=== PATIENT | female | born 1990 | race Caucasian/White ===

== ENCOUNTER 2017-04-10 14:27 | Inpatient (IN) ==
--- OUTSIDE RECORDS SUMMARY | 2017-04-10 15:48 | External Medical Summary | Continuity of Care Document ---
:1990 Author Organization [facility] Address [address] [place], [place] [id number] Phone Care Team Providers Name Role Phone Gosia Quach MD Unavailable Unavailable Allergies, Adverse Reactions, Alerts Substance Reaction Severity Status No Known Drug Allergies Unknown Active Medications Medication Instructions Dosage Effective Dates Status Comments (start - stop) 28 mg-800 - Active mcg tablet Prozac 20 mg TAKE ONE CAPSULE BY - Active capsule MOUTH EVERY DAY IN THE MORNING PROBIOTIC & - Active ACIDOPHILUS (unknown strength) Vitamin D3 400 unit - Active capsule Foltrate 0.5 mg-1 take 1 tablet by Not Available - Active mg tablet oral route every day ORAL - Active TABLET Problems Condition Effective Dates (start - stop) Clinical Status Threatened - Dysuria - Active Vulvitis, Acute - Active IUD Surveillance - Active Procedures Procedure Date Office/outpatient visit,est, mod Blood typing, ABO only Blood typing, Rh (D) Venpnctr fngr/heel/ear stick routne Results Test Name Date and Time Measure Units Reference Range Abnormal Flag Comments Panel Description: ABO GROUP AND RH TYPE ABO GROUP 13:57:00 O RH TYPE 13:57:00 RH(D) POSITIVE REPORT COMMENT:FASTING: NOTest performed at [facility] [id number] [place] [id number]: CAMERON STACK DO,MPH Advance Directives Directive Yes / No Effective Date File Name Unknown Encounters Encounter Practice Location Reason(s) Diagnoses Date Provider Care Team Description For Visit Members Office/outpati Andrea Dominguez early Ob Threatened Matson Referring ent visit,est, In Womens with -2016 Joann. 700 Provider: [email or web address] nettie AGUILAR Medical Joann Matson [address], (chief Center Kisha Gallegos, [address] [place] [address], complaint) [address], Medical [id number], [place], [place] [facility], [address], tel:[phone], [place], [address] [place]. [id number]. tel:[phone] tel:[phone] Andrea Dominguez [place]son In Womens -2013 Joann. 700 wali [place], Medical [address], Center , [place], [address], [id number], [place], [place], tel:[phone], [address] [place]. tel:[phone] Andrea Dominguez [place] In Womens -2010 Jessica. wali [place], [address], Medical [place], [place] , [id number], [address], [place], tel:[phone] [place], [id number], [place]. tel:[phone] Family History Family Member Diagnosis Age At Onset Father Hypertension Mother Urological Disorder No family history of Ovarian Cancer No family history of Diabetes No family history of Uterine Cancer Mother Thyroid Disorder No family history of Colon Cancer No family history of Cardiovascular Disease No family history of Stroke No family history of Breast Cancer Immunizations Vaccine Date Status Comments Unknown Payers Payer name Insurance type Covered constitution party ID Authorization(s) [facility] [id number] Social History Type Description Quantity Date Captured Alcohol Use Details No Caffeine Use Details Unknown occas per day Tobacco Use Status Never smoked tobacco Smoking Status Never smoker Non-Smoking Tobacco Use : No Details Available : No Details Available Details Vital Signs Date / Height Weight BMI Pulse Blood Temperature Respiratory Body Head BMI Time: Rate Pressure Rate Surface Circumference percentile Area 188.50 28.6 113 -2016 lbs 6 mm[Hg] 1:19 kg/m PM eter (2) Chief Complaint And Reason For Visit Most recent encounter only, dated '08/28/2016 13:10'. early Ob with spotting (chief complaint). Description: Pt of Dr Quach's. LMP -7 wks 0 days with EDC of 04/16/17. Pt reports dark red bleeding on 08/21, small amount- then turned brown and went away. Had occ spotting since then and then more brown discharge on 08/24. None for the last 2 days. Minimal cramping on 08/21. None since. Still having a little bit of nausea and mild breasttenderness, No fatigue. Had + preg test on 08/09. Saw Dr Quach for confirmation of . Hx of 2 SAB's- 1 very early and didn' t see drMireille Is taking weekly Progesterone shots. Doesn't know blood type. Reason For Referral Reason For Referral Unknown Plan Of Care Date Type Action Status Unknown. Date Type Problem Goal Intervention Status Start Date Unknown. History Of Present Illness Encounter Date Complaint History Of Present Illness early Ob with spotting Pt of Dr Quach's. LMP - 7 wks 0 days with EDC of 04/16/17. Pt reports dark red bleeding on 08/21, small amount- then turned brown and went away. Had occ spotting since then and then more brown discharge on 08/24. None for the last 2 days. Minimal cramping on 08/21. None since. Still having a little bit of nausea and mild breast tenderness, No fatigue. Had + preg test on 08/09. Saw Dr Quach for confirmation of . Hx of 2 SAB's- 1 very early and didn't see Is taking weekly Progesterone shots. Doesn't know blood type. Functional Status Encounter Date Functional Assessment Cognitive Assessment Unknown Medications Administered Medication Instructions Dosage Effective Dates (start - stop) Status Comments Drug Treatment Unknown Instructions Date Instruction Additional Information Unknown
[2017-04-10] MEDS ORDERED: DINOPROSTONE 10 MG VAGINAL INSERT VG ONE (16:22)
[2017-04-10] MEDS ORDERED: LIDOCAINE 1% (10mg/ml) 2mL INJ PF SDV ID PRN (16:22)
[2017-04-10] MEDS ORDERED: SALINE FLUSH 10ml SYRINGE IV PRN (16:22)
[2017-04-10] MEDS ORDERED: MAG-AL + SIM ORAL LIQUID 30ml PO PRN (16:22)
[2017-04-10] MEDS ORDERED: ACETAMINOPHEN 500 MG TABLET PO PRN (16:22)
[2017-04-10] MEDS ORDERED: TERBUTALINE 1 MG/ML VIAL SQ PRN (16:22)
[2017-04-10] MEDS ORDERED: METHYLERGONOVINE 0.2 MG/ML INJECTION IM PRN (16:22)
[2017-04-10] MEDS ORDERED: CARBOPROST 250 MCG/ML INJECTION IM PRN (16:22)
[2017-04-10] MEDS ORDERED: CALCIUM CARBONATE Chewable 500mg TABLET PO PRN (16:22)
[2017-04-11 05:57] VITALS: BMI 38.5
[2017-04-11] MEDS: LR 1,000 ML IV PRN ×3 (05:58→15:38)
[2017-04-11] MEDS: D5LR 1,000 ML IV PRN ×2 (05:58→15:07)
[2017-04-11] MEDS ORDERED: OXYTOCIN DRIP 30 UNIT/500 ML ML IV PRN (06:00)
--- NOTE | 2017-04-11 10:54 | Anesthesia Preoperative Report ---
Anesthesia Epidural/Spinal Rec - Date and Time Date: 04/11/17 Preoperative Diagnosis: Active labor Procedure: Labor Epidural Plan: Epidural - Vital Signs /Para: P:1 - Medictaions & Allergies Inpatient Medications: Current Medications Acetaminophen (Tylenol) 500 - 1,000 mg PO Q4H PRN PRN Reason: Pain Last Admin: 04/10/17 22:02 Dose: 1,000 mg Al Hydroxide/Mg Hydroxide (Maalox Plus) 30 ml PO Q3H PRN PRN Reason: Indigestion Calcium Carbonate (Tums) 500 - 1,000 mg PO Q2H PRN PRN Reason: Indigestion Carboprost Tromethamine (Hemabate) 250 mcg IM O PRN PRN Reason: .Downtime Diphenhydramine HCl (Benadryl) 50 mg PO HS PRN PRN Reason: Sleep Last Admin: 04/10/17 22:08 Dose: 50 mg Lactated Ringer's (Lactated Ringers) 1,000 mls @ 999 mls/hr IV .Q1H1M PRN Last Admin: 04/11/17 05:58 Dose: 999 mls/hr Dextrose/Lactated Ringer's (Dextrose 5%-Lactated Ringers) 1,000 mls @ 125 mls/ hr IV .Q8H PRN PRN Reason: Labor Last Admin: 04/11/17 05:58 Dose: 125 mls/hr Oxytocin (Pitocin Drip) 30 unit in 500 mls @ 2 mls/hr IV .Q24H PRN; Protocol PRN Reason: Induction/Augmentation Last Admin: 04/11/17 05:59 Dose: 2 mls/hr Lidocaine HCl (Xylocaine-Mpf 1% Vial) 0.2 mg ID O PRN PRN Reason: IV Start Methylergonovine Maleate (Methergine) 0.2 mg IM O PRN Misoprostol (Cytotec) 800 mcg NM ONCE PRN Sodium Chloride (Iv Flush) 10 - 80 ml IV PRN PRN PRN Reason: Flushing Terbutaline Sulfate (Brethine) 0.25 mg SQ PRN PRN Allergies/Adverse Reactions: Allergies Allergy/AdvReac Type Severity Reaction Status Date / Time No Known Allergies Allergy Verified 04/11/17 05:13 - Medical History Neuro/Musculoskeletal: Reports: Depression Other History: Reports: Now - Surgical History Anesthesia Reactions: None Hx Family Anesthesia Reaction: No History of Motion Sickness: No - Social History Smoking Status: Never smoker Second Hand Exposure: No Substance Use Type: does not use Alcohol Intake Frequency: does not drink Hx Chewing Tobacco Use: No - Pertinent Findings Lab Data: CBC and BMP 04/10/17 16:38 04/10/17 16:38 BMP 04/10/17 16:38 Sodium 143 Potassium 4.0 Chloride 110 H Carbon Dioxide 21 L BUN 8.0 Creatinine 0.5 L Glucose 85 Calcium 9.8 Liver Function 04/10/17 Range/Units 16:38 Total Bilirubin < 0.10 L (0.20-1.30) MG/DL AST 27 (14-36) U/L ALT 32 (9-52) U/L Alkaline Phosphatase 144 H (38-126) U/L Albumin 3.7 (3.5-5.0) G/DL Urine 04/10/17 Range/Units 17:09 Urine Color Yellow (YELLOW) Urine Clarity Clear Urine pH 7.0 (5.0-8.0) Ur Specific Beaver 1.020 (1.015-1.025) Urine Protein Negative (NEGATIVE) Urine Glucose (UA) Negative (NEGATIVE) EKG Rhythm: Normal Sinus Rhythm - Physical Exam Respiratory Exam: lungs clear Cardiovascular Exam: regular rate and rhythm - Airway Assessment Mallampati Score: II TMD: 3 Fingerbreadths Neck Extension: good Overall Assessment: may be difficult intubation - ASA ASA Score: 2 - Discussion Discussion: Discussed risks/options/alternatives of anesthesia and questions answered. Patient consents. Nursing pain assessment noted. Anesthesia Discussion: spouse Attestation Statement: Prior to the delivery of any anesthetic medication, I examined the patient, developed the plan, obtained the patient's consent and discussed the risk and benefits of the procedure with the patient/guardian.
[2017-04-11] MEDS ORDERED: ROPIVACAINE 1% 10MG/ML INJ 200 MG, SUFentanil 50 MCG in NS 100 ML EPI ONE (15:55)
[2017-04-11] MEDS ORDERED: CITRIC ACID/SODIUM CITRATE 30ml PO ONE (18:46)
[2017-04-11] MEDS ORDERED: CEFAZOLIN PREMIX (MC ONLY) 2 GM/50 ML BAG IV ONE (18:46)
[2017-04-11] MEDS ORDERED: FAMOTIDINE PB 20 MG/50 ML BAG IV ONE (18:46)
[2017-04-11] MEDS ORDERED: TRANEXAMIC ACID 1,000 MG in NS 100 ML IV ONE (18:50)
[2017-04-11] MEDS ORDERED: OXYTOCIN BOLUS BAG 30 UNIT/500 ML ML IV SCH (19:30)
[2017-04-11] MEDS ORDERED: MORPHINE SULFATE PF 5mg/10ml INJ (Duramorph) ONE (20:08)
[2017-04-11] MEDS ORDERED: ONDANSETRON 4 MG/2 ML INJECTION ONE (20:20)
[2017-04-11] MEDS ORDERED: LIDOCAINE 1.5% W/EPI 1:200,000 30ml SDV PF ONE (20:20)
[2017-04-11] MEDS ORDERED: EPHEDRINE 50mg/ml INJECTION ONE (20:21)
[2017-04-11] MEDS ORDERED: LR 1,000 ML IV SCH (20:30)
[2017-04-11] MEDS ORDERED: DiphenhydrAMINE 25 MG CAPSULE PO PRN (20:48)
[2017-04-11] MEDS ORDERED: HYDROCORTISONE 2.5% CREAM 30gm RECTALLY PRN (20:48)
[2017-04-11] MEDS ORDERED: ONDANSETRON 4 MG/2 ML INJECTION IVP PRN ×3 (20:48→21:46)
[2017-04-11] MEDS ORDERED: SALINE FLUSH 10ml SYRINGE IV PRN (20:48)
[2017-04-11] MEDS ORDERED: CALCIUM CARBONATE Chewable 500mg TABLET PO PRN (20:48)
[2017-04-11] MEDS ORDERED: ACETAMINOPHEN 500 MG TABLET PO PRN (20:48)
[2017-04-11] MEDS ORDERED: SIMETHICONE 80 MG CHEWABLE TABLET PO PRN (20:48)
[2017-04-11] MEDS ORDERED: OXYTOCIN DRIP 30 UNIT/500 ML ML IV SCH (21:00)
[2017-04-11] MEDS ORDERED: D5LR 1,000 ML IV SCH (21:00)
[2017-04-11] MEDS ORDERED: DiphenhydrAMINE 50 MG/ML INJECTION IVP PRN ×2 (21:45→21:46)
[2017-04-11] MEDS ORDERED: ROPIVACAINE 1% 10MG/ML INJ 200 MG, SUFentanil 50 MCG in NS 100 ML EPI PRN (21:45)
[2017-04-11] MEDS ORDERED: NALOXONE 0.4 MG/ML INJECTION IVP PRN (21:45)
[2017-04-11] MEDS ORDERED: NALOXONE 2 MG/2 ML INJECTION PFS IVP PRN (21:46)
[2017-04-11] MEDS: IBUPROFEN 800 MG TABLET PO SCH (23:06)
[2017-04-11] MEDS: SIMETHICONE 80 MG CHEWABLE TABLET PO SCH (23:23)
[2017-04-12] MEDS: SIMETHICONE 80 MG CHEWABLE TABLET PO SCH ×4 (09:35→23:48)
[2017-04-12] MEDS: DOCUSATE CALCIUM 240 MG CAPSULE PO SCH (09:35)
[2017-04-12] MEDS: IBUPROFEN 800 MG TABLET PO SCH ×2 (09:35→18:10)
--- NOTE | 2017-04-12 09:56 | Operative Note ---
DATE OF PROCEDURE: 04/11/2017 PREOPERATIVE DIAGNOSES 1. 39 week, 1 day intrauterine . 2. Failure to descend. 3. Failure to dilate. POSTOPERATIVE DIAGNOSES: Same - delivered. PROCEDURE: Primary low transverse section. SURGEON: Gosia Quach MD INTERACTIVE GRAPHIC DESIGNER: Kip Fajardo MD ANESTHESIA: Epidural. COMPLICATIONS: None. EBL: 800 mL FLUIDS: 900 mL LR. URINE OUTPUT: 200 mL of clear urine at the end of the procedure. INDICATIONS A 26-year-old at 39 weeks, 1 day estimated gestational age induced for elevated blood pressures in at term. Maximum dilation 1.5 cm. FINDINGS Female infant in ASTRID presentation. Dr. Yanez was present at delivery. Apgars 8/8/9. Patient weight 3884 g (8 pounds ounces). Normal uterus, tubes and ovaries. "Daysi Lane." DESCRIPTION OF PROCEDURE After verbal and written informed consent were obtained, the patient was taken to the operating room where epidural anesthesia was found to be adequate. She was then prepped and draped in the usual sterile fashion in the dorsal supine position with left lateral tilt. A Pfannenstiel skin incision was made with a scalpel and carried down through the underlying layer of fascia. Fascia was then incised in the midline and extended laterally using Rivers scissors. The superior aspect of the fascial incision was then grasped with Greer clamp x 2, elevated, and the underlying rectus muscles were dissected off bluntly and sharply. Attention was then turned to the inferior aspect of the incision which , in a similar fashion, was grasped, tented up with Greer clamps and the rectus muscles were dissected off bluntly and sharply. The rectus muscles were then in the midline and the peritoneum was identified, tented up, entered sharply with Metzenbaum scissors. Peritoneal incision was then extended superiorly and inferiorly with good visualization of the bladder. Bladder blade was then inserted and the vesicouterine peritoneum was identified , grasped with pickups and entered sharply with Metzenbaum scissors. The incision was then extended laterally and the bladder flap was created digitally. The bladder blade was then reinserted and the lower uterine segment incised in a transverse fashion with a scalpel. Uterine incision was then extended laterally using manual traction. The bladder blade was removed and the infant' s head was delivered atraumatically. The mouth and the nose were suctioned using bulb suction. The 's shoulders were delivered with some difficulty , delivering the posterior shoulder which was the infant's left shoulder. The cord was doubly clamped and cut and the was handed off to Dr. Yanez who was present at the delivery. Placenta was then removed manually and the uterus was exteriorized and cleared of all clots and debris. The uterine incision was repaired using 0 Monocryl in a running-locking fashion. 3-0 chromic was then used to close another layer of muscular defect at the left lateral anterior aspect of the uterine incision and also to reapproximate the bladder flap. 3-0 Vicryl was used at the right lateral aspect of the bladder flap as the chromic suture did tear after the tying and during the tying of the knot, so the Vicryl was used to finish out the reapproximation of the bladder flap and the two ends of the suture were tied to achieve good closure and excellent hemostasis. The incision was then found to be dry and the uterus was returned to the abdomen. Gutters were cleared of clots and debris. The uterine incision continued to be dry once the uterus was replaced into the abdomen. Peritoneum was then closed with 2-0 Vicryl. The fascia was then reapproximated using 0 Vicryl in a running fashion. The skin was closed using wide reggie. The patient tolerated the procedure well. Sponge, lap and needle counts were correct x 2. Two grams of Kefzol were given prior to the procedure. One gram of tranexamic acid or TXA was given at cord clamp. The patient was taken to the recovery room in stable condition and is doing well at the time of this dictation. [facility]ITAL[facility]
--- NOTE | 2017-04-12 13:21 | OB/GYN Progress Note ---
OB-PP Progress Note - General PPD1 POD:: Post Op Check, POD1 Maternal Group B Strep: Negative Maternal blood type: O+ Maternal Rubella Status: Immune - Subjective Date: 04/12/17 Lochia: Moderate Pain: controlled Voiding: voiding Nausea or Vomiting Present: No - Objective Vital Signs: Last Vital Signs Temp 98.3 F 04/12/17 09:00 Pulse 83 04/12/17 09:00 Resp 16 04/12/17 09:00 BP 125/64 04/12/17 09:00 Pulse Ox 97 04/12/17 09:00 General: alert and oriented Respiratory: non-labored Respiratory Auscultation: clear bilaterally Abdomen: fundus firm, non-tender Incision: dry, dressed Extremities: non-tender Edema: none Laboratory: Laboratory Results - last 24 hr 04/12/17 04:42 WBC 16.1 H D RBC 3.44 L Hgb 10.8 L D Hct 33.0 L D MCV 95.9 MCH 31.4 MCHC 32.7 RDW Std Deviation 44.0 Plt Count 168 MPV 10.6 - Assessment (1) Status: Acute - Assessment Assessment: SP, Primary C/S, Depression - Plan Plan: routine care
--- NOTE | 2017-04-12 17:59 | Anesthesia Postoperative Note ---
- Date and Time Date: 04/12/17 Time: 17:58 - Status Patient Participated in Evaluation: Patient Participated in Person Vital Signs: Temperature 98.3 F 04/12/17 13:30 Pulse Rate 107 H 04/12/17 13:30 Respiratory Rate 16 04/12/17 13:30 Blood Pressure 114/66 04/12/17 13:30 Pulse Oximetry 96 04/12/17 13:30 Respiratory Function: Airway Patent, Regular Respirations Cardiovascular Function: Regular Pulse Mental Status: Alert and Oriented Pain Intensity: 0 Hydration: Taking PO Fluids Complications During Recover: None Apparent - Follow-Up Instructions Instructions: Per Surgeon
[2017-04-12] MEDS: HYDROCODONE/APAP 5mg/325mg TABLET PO PRN (23:48)
[2017-04-13] MEDS: IBUPROFEN 800 MG TABLET PO SCH ×2 (04:49→09:04)
[2017-04-13 08:37] VITALS: O2SAT 97
[2017-04-13] MEDS: HYDROCODONE/APAP 5mg/325mg TABLET PO PRN ×2 (09:03→15:49)
[2017-04-13] MEDS: DOCUSATE CALCIUM 240 MG CAPSULE PO SCH (09:09)
[2017-04-13] MEDS: SIMETHICONE 80 MG CHEWABLE TABLET PO SCH (09:09)
[2017-04-13] MEDS ORDERED: FLUoxetine 20 MG CAPSULE PO SCH (09:45)
[2017-04-13 13:00] VITALS: RESP 18
--- NOTE | 2017-04-13 13:10 | OB/GYN Progress Note ---
OB-PP Progress Note - General Maternal Group B Strep: Negative Maternal blood type: O+ Maternal Rubella Status: Immune - Subjective Date: 04/13/17 Lochia: Minimal Pain: controlled Voiding: voiding Nausea or Vomiting Present: No - Objective Vital Signs: Last Vital Signs Temp 97.9 F 04/13/17 12:58 Pulse 87 04/13/17 12:58 Resp 18 04/13/17 12:58 BP 133/79 04/13/17 12:58 Pulse Ox 97 04/13/17 12:58 General: alert and oriented Cardiovascular: regular rate,rhythm Respiratory: non-labored Abdomen: fundus firm, non-tender Incision: normal, clean, no erythema, dry Extremities: non-tender Edema: none - Assessment (1) Status: Acute - Assessment Assessment: SP, Primary C/S, Depression - Plan Plan: routine care
[2017-04-13 18:07] VITALS: BP 131/75; PULSE 90; TEMP 98.3
--- NOTE | 2017-04-13 18:52 | Discharge Summary ---
OB Discharge Summary Reason for Hospitalization:: TIUP, elevated BPs Date: 04/13/17 General: See PP prog note from today for details. Pt has decided to go ahead & dismiss to home tonight at 48 hours . Estimated Blood Loss:: 800 Procedures: gomez bulb, cervidil, pitocin for induction, pitocin for augmentation Labor Procedures: AROM, Epidural Delivery: Primary - Final Diagnosis depression : 3 Para: 0 (1) Qualifiers: Weeks of gestation: 39 weeks Qualified Code(s): Z3A.39 - 39 weeks gestation of Status: Acute Weeks: 39 Days: 2 Sex and Viability: viable female Comment: Snyder Name: Daysi Lane Consultations: 04/11/17 20:49 Nurse Consult [CONS] Routine Comment: Instructions: Discharge Instructions: Maternal Child Mother Dismissal Instructions Given (diet, activity, and medications, follow-up) Discharge Plan - Discharge Disposition Discharge Date: 04/13/17 Disposition: 01 Discharged Home, Self-Care *Condition: Stable Reason For Visit (Visit label in EMR): Labor - Discharge Medications *Discharge Medications: New Hydrocodone/APAP 5/325 [[place] 5/325] 1 - 2 tab PO Q4H PRN #40 tab PRN Reason: Pain Ibuprofen [Motrin] 800 mg PO Q8HMC #90 tab FLUoxetine [Prozac] 20 mg PO DAILY #30 cap - Discharge Packet/Instructions *Diet: As tolerated *Activity: As per maternal child C/S dismissal instructions. *Pain Management/Treatment: As per maternal child C/S dismissal instructions. *Wound Care: As per maternal child C/S dismissal instructions. *Expected Signs/Symptoms: As per maternal child C/S dismissal instructions. *Notify Physician if: As per maternal child C/S dismissal instructions. *During Business Hours Contact: Dr. Quach at [facility] - [phone] *After Business Hours Contact: Hospital telephone plant power operator to have Dr. Quach paged at [phone] *Pending Lab/Results: No Pending Lab - Referrals/Follow Up *Referrals/Follow Up: Gosia Quach MD [Family Provider] - 2 Weeks - Patient Handouts Patient Handouts: Delivery - Dismissal Complete Discharge Instructions are:: Complete
== END 2017-04-13 20:00 | disposition home or self-care (01) | DRG 765 ==
LOC: MC 15:38
PROVIDERS: ADMIT Family Medicine; ATTEND Family Medicine